=== PATIENT | female | born 1965 | race Two or more races ===

== ENCOUNTER 2021-05-06 09:15 | Inpatient (IN) | payer OTHER ==
[~2021-05-06] VITALS: Ht 162.6 cm; Wt 54.4 kg
[2021-05-07] MEDS ORDERED: INSULIN SYRING1 EA29 SUBCUTANEO (14:02)
[2021-05-07] MEDS ORDERED: AVAPRO300 MG PO (14:03)
[2021-05-07] MEDS ORDERED: AMBIEN10 MG PO (14:03)
[2021-05-07] MEDS ORDERED: JARDIANCE10 MG PO (14:04)
[2021-05-13] MEDS ORDERED: CLOTRIMAZOLE-BE15 G1 (11:54)
[2021-05-13] MEDS ORDERED: LANSOPRAZOLE30 MG (11:54)
[2021-05-13] MEDS ORDERED: IRBESARTAN-HCT1 EAC1 (11:55)
[2021-05-13] MEDS ORDERED: NEO-POLYMYXIN-H10 M1 (11:55)
[2021-05-13] MEDS ORDERED: OMEPRAZOLE20 MG (11:55)
== END 2021-05-15 16:21 | disposition home or self-care (01) | DRG 331 ==
LOC: O/R 05-13 09:12 → SURH 05-13 09:12
PROVIDERS: ADMIT Colon & Rectal Surgery; ATTEND Colon & Rectal Surgery
PROC: 07TB4ZZ Resection of Mesenteric Lymphatic, Percutaneous Endoscopic Approach (ICD-10-PCS; 2021-05-13)
PROC: 0DBK4ZZ Excision of Ascending Colon, Percutaneous Endoscopic Approach (ICD-10-PCS; principal; 2021-05-13 15:45)
DX: C18.2 Malignant neoplasm of ascending colon (principal); I10 Essential (primary) hypertension; E11.9 Type 2 diabetes mellitus without complications; Z79.4 Long term (current) use of insulin

== ENCOUNTER 2021-05-18 01:16 | Inpatient (IN) | payer OTHER ==
[~2021-05-18] VITALS: Ht 162.6 cm; Wt 54.4 kg
[~2021-05-18 01:16] MED LIST: AMBIEN10 MG PO; AVAPRO300 MG PO; CLOTRIMAZOLE-BE15 G1; INSULIN SYRING1 EA29 SUBCUTANEO; IRBESARTAN-HCT1 EAC1; JARDIANCE10 MG PO; LANSOPRAZOLE30 MG; NEO-POLYMYXIN-H10 M1; OMEPRAZOLE20 MG
[2021-05-24] MEDS ORDERED: METOCLOPRAMIDE H5 MG PO (12:57)
== END 2021-05-24 15:54 | disposition home or self-care (01) | DRG 389 ==
LOC: ER 01:16 → SURG 09:24 → SEC-K 09:24 → SURG 16:28 → O/R 05-22 10:38 → SURG 05-22 10:55
PROVIDERS: ADMIT Colon & Rectal Surgery; ATTEND Colon & Rectal Surgery
PROC: BW21ZZZ Computerized Tomography (CT Scan) of Abdomen and Pelvis (ICD-10-PCS; principal; 2021-05-18)
PROC: 02H633Z Insertion of Infusion Device into Right Atrium, Percutaneous Approach (ICD-10-PCS; 2021-05-19)
PROC: 4A12X4Z Monitoring of Cardiac Electrical Activity, External Approach (ICD-10-PCS; 2021-05-20)
PROC: B24BZZZ Ultrasonography of Heart with Aorta (ICD-10-PCS; 2021-05-21)
DX: K56.609 Unspecified intestinal obstruction, unspecified as to partial versus complete obstruction (principal); N17.8 Other acute kidney failure; I47.1 Supraventricular tachycardia; E86.0 Dehydration; N18.30 Chronic kidney disease, stage 3 unspecified; E87.6 Hypokalemia; I11.9 Hypertensive heart disease without heart failure; E11.65 Type 2 diabetes mellitus with hyperglycemia; R11.2 Nausea with vomiting, unspecified; F45.8 Other somatoform disorders; E05.90 Thyrotoxicosis, unspecified without thyrotoxic crisis or storm; Z20.822 Contact with and (suspected) exposure to COVID-19

== ENCOUNTER 2021-05-27 17:24 | Inpatient (IN) | payer OTHER ==
[~2021-05-27] VITALS: Ht 162.6 cm; Wt 45.4 kg
[~2021-05-27 17:24] MED LIST changes: +METOCLOPRAMIDE H5 MG PO
[2021-05-28] MEDS ORDERED: INTESTINEX680 M1 (16:20)
[2021-05-28] MEDS ORDERED: CLOTRIMAZOLE-BE15 G1 (16:21)
[2021-05-28] MEDS ORDERED: IRBESARTAN-HCT1 EAC1 (16:21)
[2021-05-28] MEDS ORDERED: LANSOPRAZOLE30 MG (16:21)
[2021-06-07] MEDS ORDERED: INTESTINEX680 M1 PO (14:12)
[2021-06-07] MEDS ORDERED: PANTOPRAZOLE SO40 MG PO (14:13)
[2021-06-07] MEDS ORDERED: CARAFATE1 GM PO (14:13)
== END 2021-06-07 17:22 | disposition home or self-care (01) | DRG 382 ==
LOC: ER 17:24 → SURG 05-28 13:51
PROVIDERS: ADMIT Colon & Rectal Surgery; ATTEND Colon & Rectal Surgery
PROC: 0DJ08ZZ Inspection of Upper Intestinal Tract, Via Natural or Artificial Opening Endoscopic (ICD-10-PCS; principal; 2021-06-03)
DX: K22.10 Ulcer of esophagus without bleeding (principal); K29.60 Other gastritis without bleeding; Z79.4 Long term (current) use of insulin; E86.0 Dehydration; E87.8 Other disorders of electrolyte and fluid balance, not elsewhere classified; D12.2 Benign neoplasm of ascending colon; E03.8 Other specified hypothyroidism; I12.9 Hypertensive chronic kidney disease with stage 1 through stage 4 chronic kidney disease, or unspecified chronic kidney disease; E11.22 Type 2 diabetes mellitus with diabetic chronic kidney disease; N18.30 Chronic kidney disease, stage 3 unspecified

== ENCOUNTER 2021-08-21 07:30 | Outpatient (CLI) | payer OTHER ==
[~2021-08-21 07:30] MED LIST changes: +CARAFATE1 GM PO; +INTESTINEX680 M1; +INTESTINEX680 M1 PO; +PANTOPRAZOLE SO40 MG PO
== END 2021-08-21 07:35 | disposition home or self-care (01) ==
LOC: NUCLEAR 07:30
PROVIDERS: ATTEND Internal Medicine Hematology & Oncology
DX: C18.2 Malignant neoplasm of ascending colon (principal)
CPT/HCPCS: 78815; A9552

== ENCOUNTER 2021-09-26 17:40 | Emergency (ER) | payer OTHER ==
[~2021-09-26] VITALS: Ht 162.6 cm; Wt 62.6 kg
[2021-09-27] MEDS ORDERED: PROTONIX20 MG PO (08:04)
[2021-09-27] MEDS ORDERED: INTESTINEX680 M1 PO (08:04)
[2021-09-27] MEDS ORDERED: SURFAK240 M1 PO (08:04)
[2021-09-27] MEDS ORDERED: PEPCID20 MG PO (08:04)
[2021-09-27] MEDS ORDERED: CIPRO500 MG PO (08:04)
[2021-09-27] MEDS ORDERED: LEVSIN0.125 MG PO (08:04)
[2021-09-27] MEDS ORDERED: CARAFATE1 GM PO (08:14)
== END 2021-09-27 08:39 | disposition home or self-care (01) ==
LOC: ER 17:40
DX: K59.09 Other constipation (principal)

== ENCOUNTER 2021-10-06 15:40 | Inpatient (IN) | payer OTHER ==
[~2021-10-06] VITALS: Ht 162.6 cm; Wt 49.9 kg
[~2021-10-06 15:40] MED LIST changes: +CIPRO500 MG PO; +LEVSIN0.125 MG PO; +PEPCID20 MG PO; +PROTONIX20 MG PO; +SURFAK240 M1 PO
[2021-10-08] MEDS ORDERED: METHIMAZOLE10 MG (10:43)
[2021-10-08] MEDS ORDERED: ZOLPIDEM TARTRA10 MG (10:43)
[2021-10-08] MEDS ORDERED: IRBESARTAN-HCT1 EAC1 (10:43)
== END 2021-10-11 15:25 | disposition home or self-care (01) | DRG 392 ==
LOC: ER 15:40 → MEDI 10-07 11:23 → SEC-K 10-07 11:23 → MEDI 10-07 12:57
PROVIDERS: ADMIT Internal Medicine; ATTEND Internal Medicine
PROC: BW21ZZZ Computerized Tomography (CT Scan) of Abdomen and Pelvis (ICD-10-PCS; principal; 2021-10-07)
DX: A09 Infectious gastroenteritis and colitis, unspecified (principal); E11.8 Type 2 diabetes mellitus with unspecified complications; Z79.4 Long term (current) use of insulin; E86.0 Dehydration; D72.828 Other elevated white blood cell count; K52.89 Other specified noninfective gastroenteritis and colitis; Z20.822 Contact with and (suspected) exposure to COVID-19